=== PATIENT | female | born 1975 | race Caucasian/White ===

== ENCOUNTER 2022-12-28 09:07 | Emergency (ER) | payer BC, SELFPAY ==
[2022-12-28 09:15] VITALS: BP 139/84; PULSE 107; RESP 18; TEMP 36.2; O2SAT 98; BMI 21.3
--- NOTE | 2022-12-28 09:27 | ED.ALCOHOL ---
HPI - Alcohol General Chief Complaint: Alcohol/Intoxication Stated Complaint: ETOH Time Seen by Provider: 12/28/22 09:11 History of Present Illness HPI narrative: This 47-year-old female comes in because of alcohol intoxication. She has been drinking alcohol steadily over the past 2 or 3 days. She has a history of alcohol abuse and dependence. She has a history of withdrawal symptoms including seizures. She states that her last drink was about 40 minutes prior to arrival. She has persistent nausea with some vomiting. Related Data Allergies Allergy/AdvReac Type Severity Reaction Status Date / Time No Known Drug Allergies Allergy Verified 12/28/22 09:15 Review of Systems Status of ROS Reports: 10 or more systems reviewed and unremarkable except as noted in History and below Narrative Constitutional: No fevers, no weight gain or loss. Eyes: No discharge. No vision changes. HENT: No congestion, no sore throat, no ear pain. Cardiovascular: No chest pain, no palpitations. Respiratory: No shortness of breath, no wheezes, no cough. Gastrointestinal: No abdominal pain, no diarrhea. Nausea with vomiting. Genitourinary: No dysuria, no hematuria. Musculoskeletal: Normal range of motion. Skin: No rashes, no pruritis. Neurological: No dizziness, weakness, sensory change, speech change. Endo/Heme/Allergies: No bruising or bleeding. No polydipsia. All other systems reviewed and are negative. PFSH PFSH Social History How often do you have a drink containing alcohol: 2-3 times a week How often do you have six or more drinks on one occasion: Daily or almost daily AUDIT-C Alcohol total score: 7 Non-prescribed substance use: denies use Exam Narrative: Exam Narrative: Constitutional: Well-developed, well-nourished, no acute distress. HEENT: Normocephalic, atraumatic. Neck: Normal range of motion. Nontender. Supple. Heart: Regular. No murmurs. Tachycardia. Intact distal pulses. Lungs: Clear to auscultation. No chest discomfort. No wheezes, rhonchi, or rales. Abdomen: Normal bowel sounds. Nontender. No rebound tenderness. Genitalia: Deferred. Back: No midline tenderness. Normal range of motion. Extremities: Normal range of motion. No injury. Skin: Intact. No rash. Warm. No erythema or pallor. Neurologic: No altered sensation. No weakness. Alert and oriented. Psychiatric: No suicidality. No anxiety or depression. No insomnia. Nursing notes and vitals signs are reviewed. Const: Vital Signs, click to edit/add: Vital Signs - 24 hr 12/28/22 09:15 Temperature 97.1 F L Pulse Rate [Pulse Oximeter] 107 H Respiratory Rate 18 Blood Pressure [Ri ght Upper Arm] 139/84 Pulse Oximetry 98 Oxygen Delivery Me thod Room Air Course Vital Signs Vital signs: Initial Vital Signs Temperature 97.1 F L 12/28/22 09:15 Temperature Source Temporal Artery Scan 12/28/22 09:15 Pulse Rate 107 H 12/28/22 09:15 Respiratory Rate 18 12/28/22 09:15 Blood Pressure 139/84 12/28/22 09:15 Blood Pressure Mean 102 12/28/22 09:15 Pulse Oximetry 98 12/28/22 09:15 Oxygen Delivery Method Room Air 12/28/22 09:15 Vital Signs Temperature 97.1 F L 12/28/22 09:15 Pulse Rate 107 H 12/28/22 09:15 Respiratory Rate 18 12/28/22 09:15 Blood Pressure 139/84 12/28/22 09:15 Pulse Oximetry 98 12/28/22 09:15 Oxygen Delivery Method Room Air 12/28/22 09:15 Temperature 97.1 F L 12/28/22 09:15 Pulse Rate 107 H 12/28/22 09:15 Respiratory Rate 18 12/28/22 09:15 Blood Pressure 139/84 12/28/22 09:15 Pulse Oximetry 98 12/28/22 09:15 Oxygen Delivery Method Room Air 12/28/22 09:15 MDM - Alcohol MDM Narrative Medical decision making narrative: This patient has a labile mood due to alcohol intoxication and at 1 point wants to be here and wants help and another time stating that she wants to leave and go home. She did agree to come in and an IV was placed where she received a half a L of normal saline with 4 mg of Zofran. Labs are acquired and returned with reassuring findings. Her blood alcohol level is yet pending. The patient pulled out her IV and states that she wants to go home. I offered detox and the patient seems interested but would rather go home and present to detox later. Her boyfriend is agreeable with this plan and will take her home. Lab Data Labs: Lab Results 12/28/22 Range/Units 09:49 WBC 6.13 (4.50-11.00) K/uL RBC 4.11 (4.00-5.20) m/uL Hgb 10.6 L (12.0-16.0) gm/dL Hct 33.8 (33.0-51.0) % MCV 82 (80-100) fL MCH 26 (26-34) pg MCHC 31 L (32-36) gm/dL RDW Coeff of Eve 20.3 H (11.5-15.5) % Plt Count 277 (140-440) K/uL Neut % (Auto) 45.7 (42.0-72.0) % Lymph % (Auto) 47.0 H (20-44) % [place] % (Auto) 5.4 (0.0-11.0) % Eos % (Auto) 1.0 (0.0-7.0) % Baso % (Auto) 0.7 (0.0-3.0) % Neut # (Auto) 2.81 (1.7-7.0) K/uL Lymph # (Auto) 2.90 (0.90-2.90) K/uL [place] # (Auto) 0.30 (0.00-0.90) K/UL Eos # (Auto) 0.06 (0.00-0.50) K/uL Baso # (Auto) 0.04 (0.00-0.30) K/uL Abs Immat Gran (auto) 0.01 (0.00-0.30) K/uL Imm/Tot Granulo (auto) 0.2 % Diff Slide Review Acceptable Review (Acceptable) Sodium 147 (135-149) mmol/L Potassium 3.3 L (3.6-5.1) mmol/L Chloride 107 (96-114) mmol/L Carbon Dioxide 26 (20-32) mmol/L BUN 14 (5-24) mg/dL Creatinine 0.6 (0.5-1.5) mg/dL Estimated Creat Clear 97.95 Estimated GFR 113 ml/min Glucose 103 (60-115) mg/dL Calcium 8.5 (8.4-10.6) mg/dL Discharge Plan Discharge Clinical Impression: Alcoholic intoxication Patient Disposition: Home w/ Parent or Adult Condition: Unchanged Additional Instructions: Follow-up with detox for ongoing management. Return if worsening. Follow Up/Referrals: Adrianna Tamayo, ATC [Primary Care Provider] - Stand Alone Forms: [employer] Info Instructions
[2022-12-28] MEDS: 0.9 % SODIUM CHLORIDE 500 ML 500 ML IV (09:54)
[2022-12-28] MEDS: ONDANSETRON 2 MG/ML inj 4 MG IVP (09:54)
[2022-12-28 09:59] LABS: Basophils Absolute Auto 0.04 K/uL (0.00-0.30); Basophils Percent Auto 0.7 % (0.0-3.0); Eosinophils Absolute Auto 0.06 K/uL (0.00-0.50); Hematocrit 33.8 % (33.0-51.0); Hemoglobin* 10.6 gm/dL (12.0-16.0); Immature Granulocytes Abs Auto 0.01 K/uL (0.00-0.30); Immature Granulocytes Pct Auto 0.2 %; Mean Corpuscular HGB Conc 31 gm/dL (32-36); Mean Corpuscular Hemoglobin 26 pg (26-34); Mean Corpuscular Volume 82 fL (80-100); Monocytes Percent Auto 5.4 % (0.0-11.0); Neutrophils Absolute Auto 2.81 K/uL (1.7-7.0); Neutrophils Percent Auto 45.7 % (42.0-72.0); Platelet Count* 277 K/uL (140-440); RDW Coefficient of Variation % 20.3 % (11.5-15.5); Red Blood Count 4.11 m/uL (4.00-5.20); White Blood Count* 6.13 K/uL (4.50-11.00)
[2022-12-28 10:09] LABS: Slide Review Reflex Yes
[2022-12-28 10:13] LABS: Chloride* 107 mmol/L (96-114); Slide Review Acceptable Review (Acceptable); Sodium* 147 mmol/L (135-149)
[2022-12-28 10:14] LABS: Potassium* 3.3 mmol/L (3.6-5.1)
[2022-12-28 10:16] LABS: Carbon Dioxide* 26 mmol/L (20-32); Creatinine* 0.6 mg/dL (0.5-1.5); Est. Creatinine Clearance* 97.95; Estimated Glomerular Filt Rate 113 ml/min
[2022-12-28 10:17] LABS: Blood Urea Nitrogen* 14 mg/dL (5-24); Calcium* 8.5 mg/dL (8.4-10.6); Glucose* 103 mg/dL (60-115)
[2022-12-28 10:27] LABS: Ethanol* 0.47 % (0.01-0.03)
== END 2022-12-28 10:35 | disposition home or self-care (01) ==
PROVIDERS: Emergency Provider Emergency Medicine Emergency Medical Services
DX: F10.129 Alcohol abuse with intoxication, unspecified (principal)
CPT/HCPCS: 36415; 80048; 82077; 85025; 96374; 99283; 99284; J2405; J7120